=== PATIENT | male | born 1995 | race Caucasian/White ===

== ENCOUNTER 2020-03-13 18:01 | Emergency (ER) | payer SELFPAY ==
[2020-03-13 18:12] VITALS: BP 142/92; PULSE 82; RESP 16; TEMP 36.8; O2SAT 98; BMI 24.5
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
[2020-03-13 18:32] VITALS: BP 142/81; PULSE 84; RESP 16; O2SAT 98
--- NOTE | 2020-03-13 18:42 | PC.NURSE ---
Pt to CT
[2020-03-13] MEDS: iohexol 300 mg/mL 100 mL Btl IV (19:10)
[2020-03-13 19:18] VITALS: RESP 18
[2020-03-13] MEDS: ondansetron 2 mg/ML SDV 2 mL 4 MG IVP (19:18)
[2020-03-13] MEDS: HYDROmorphone 1 mg/mL INJ 1 mL 0.5 MG IVP ×2 (19:18→20:16)
[2020-03-13 19:26] LABS: Basophils % 0.1 %; Eosinophils % 0.3 %; Hematocrit 46.8 % (42.0-52.0); Hemoglobin 16.1 g/dL (11.7-16.6); Lymphocytes # 2.5 10^3/uL (0.8-4.8); Lymphocytes % 17.2 %; Mean Corpuscular HGB Conc 34.4 g/dL (30.0-36.0); Mean Corpuscular Hemoglobin 31.3 pg (28.0-34.0); Mean Corpuscular Volume 90.9 fL (80-94); Mean Platelet Volume 11.2 fL (7.4-10.4); Monocytes # 1.3 10^3/uL (0.2-0.9); Monocytes % 9.1 %; Neutrophils # 10.7 10^3/uL (1.8-7.7); Neutrophils % 72.8 %; Nucleated Red Blood Cells % 0 %; Platelet Count 244 10^3/cmm (130-400); Red Blood Count 5.15 10^6/uL (4.1-5.3); Red Cell Distribution Width 12.4 % (12.1-15.1); White Blood Count 14.7 10^3/uL (4.0-10.0)
[2020-03-13 19:35] LABS: Alanine Aminotransferase 30 U/L (0-41); Albumin Level 4.7 g/dL (3.5-5.2); Alkaline Phosphatase 133 IU/L (40-130); Anion Gap 17.9 (5-19); Aspartate Amino Transferase 40 U/L (0-40); Blood Urea Nitrogen 9 mg/dL (6-20); Calcium 9.7 mg/dL (8.5-10.5); Carbon Dioxide 26 mmol/L (22-29); Chloride 98 mmol/L (98-107); Globulin 2.9 g/dL (1.3-4.6); Glomerular Filtration Rate 103.7 mL/min (90-130); Glucose 111 mg/dL (65-115); Osmolality Calculated 283 mOsm/kg (285-295); Potassium 3.9 mmol/L (3.5-5.1); Sodium 138 mmol/L (136-145); Total Bilirubin 0.8 mg/dL (0.15-1.2); Total Protein 7.6 g/dL (6.6-8.7)
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
[2020-03-13] MEDS: lactated ringers 1,000 ML 999 ML IV (19:52)
[2020-03-13 20:16] VITALS: RESP 19; O2SAT 98
[2020-03-13 20:18] VITALS: BP 140/93; PULSE 18; RESP 20; O2SAT 98
--- NOTE | 2020-03-13 20:19 | ECG_ITS ---
Measurements Intervals [place] Rate: 58 P: 155 [place]: 142 QRS: 66 QRSD: 92 T: 77 QT: 375 QTc: 369 ECTOPIC ATRIAL BRADYCARDIA POSSIBLE LEFT ATRIAL ENLARGEMENT [-0.1mV P WAVE IN V1/V2] POSSIBLE RIGHT VENTRICULAR CONDUCTION DELAY [RSR (QR) IN V1/V2] NONSPECIFIC T-WAVE ABNORMALITY No previous ECG available for comparison Electronically Signed On 03-13-2020 21:52:47 CDT by Lynne Rosario M.D. [email or web address]
[2020-03-13 21:29] VITALS: BP 142/86; PULSE 72; RESP 16; O2SAT 98
--- NOTE | 2020-03-14 15:58 | DCPLANNER ---
hedge fund manager had message to schedule a follow up appointment for patient with Dr. Pan. hedge fund manager called [facility], spoke with Gabriella. hedge fund manager gave clinic patients information, was told that it would be printed and given to Jamin for review. Clinic will call family preservation caseworker and patient with appointment information.
--- NOTE | 2020-03-20 09:15 | DCPLANNER ---
Jamin from [facility] called assistant case manager stating that patient has an appointment scheduled for Thursday, March 21, 2020 at 1:00 with Leilani Osborne. Clinic will call patient with appointment information.
--- NOTE | 2020-04-18 13:04 | DCPLANNER ---
Patient did attend follow up appointment scheduled with Dr. Puga office.
== END 2020-03-13 21:30 | disposition home or self-care (01) ==
PROVIDERS: Emergency Provider Emergency Medicine
DX: S22.21XA Fracture of manubrium, initial encounter for closed fracture (principal); S22.32XA Fracture of one rib, left side, initial encounter for closed fracture; S22.000A Wedge compression fracture of unspecified thoracic vertebra, initial encounter for closed fracture; V57.5XXA Driver of pick-up truck or van injured in collision with fixed or stationary object in traffic accident, initial encounter; F17.210 Nicotine dependence, cigarettes, uncomplicated
CPT/HCPCS: 12345; 36415; 70450; 70486; 71260; 72125; 72128; 74177; 80053; 85025; 93005; 96365; 96375; 96376; 99283; 99284; J1170; J2405; Q9967

== ENCOUNTER 2020-04-03 11:08 | Outpatient (CLI) | payer SELFPAY ==
--- NOTE | 2020-04-03 11:19 | CT_ITS ---
WS: [id number] CT scan of the chest without IV contrast, additional two-dimensional coronal and sagittal reconstruct ion was performed. 04/03/2020 Clinical Data: Sternal pain Comparison: CT chest abdomen and pelvis, 03/13/2020. DLP: 664.[address] scans at [facility] use at least one of these dose optimization techniques: automat ed exposure control; mA and/or kV adjustment per patient size (includes targeted exams where dose is matched to clinical indication); or iterative reconstruction. Findings: No nodules, masses or effusions are seen. The heart size is normal with no pericardial effusion. The pulmonary arterial system and thoracic aorta demonstrate no abnormalities or dilatations. No pneumoni a or pneumothorax is present. The trachea bifurcates normally into the bronchi. There is no axillary or significant mediastinal adenopathy. The upper abdomen shows no abnormalities. The fractures of the T3, T4 and T5 vertebral bodies, superior aspect of the manubrium, left second ri b, and left T3 and T4 transverse processes have not changed. CT/CT chest wo con [id number]: [address] scan of the chest, acute cardiopulmonary disease. 2. No change in multiple fractures of the thoracic spine and manubrium.
--- NOTE | 2020-04-03 11:19 | CT_ITS ---
WS: [id number] CT scan of the thoracic spine. Additional two-dimensional coronal and sagittal reconstruction was per formed. 04/03/2020 Clinical Data: Thoracic fracture Comparison: CT thoracic spine, 03/13/2020. DLP: 1267.[address] scans at [facility] use at least one of these dose optimization techniques: automat ed exposure control; mA and/or kV adjustment per patient size (includes targeted exams where dose is matched to clinical indication); or iterative reconstruction. Findings: The compression fractures of the T3 and T4 vertebral bodies remain unchanged. There is loss of approx imately 25% of the anterior and central vertebral body heights. There is minimal retropulsion at the posterior inferior aspect of T4 of 0.2 cm. There is slight loss of vertebral body height approximatel y 10% of the anterior and central portion of T5. The left transverse processes of T3 and T4 show nond isplaced fractures which have not changed. There is a fracture at the costophrenic vertebral junction of the left second rib also unchanged. No canal stenosis is seen. The lower thoracic vertebral bodies appear to be normal. The paravertebral regions show no abnormalities. CT/CT thoracic spin wo con* [id number] Impression: 1. Fractures of T3, T4 and the superior aspect of T5 unchanged. 2. Transverse processes fractures of T3 and T4 on the left unchanged. 3. Fracture of the left second rib at the junction of the transverse process un changed.
== END 2020-04-03 11:09 | disposition home or self-care (01) ==
LOC: RADWPI 11:11
PROVIDERS: Visit Provider Licensed Practical Nurse
DX: S22.059A Unspecified fracture of T5-T6 vertebra, initial encounter for closed fracture (principal); S22.049A Unspecified fracture of fourth thoracic vertebra, initial encounter for closed fracture; S22.039A Unspecified fracture of third thoracic vertebra, initial encounter for closed fracture; X58.XXXA Exposure to other specified factors, initial encounter; S22.39XA Fracture of one rib, unspecified side, initial encounter for closed fracture; R07.2 Precordial pain
CPT/HCPCS: 71250; 72128

== ENCOUNTER 2020-05-07 10:36 | Outpatient (CLI) | payer SELFPAY ==
--- NOTE | 2020-05-07 10:30 | CT_ITS ---
WS: [id number] CT THORACIC SPINE TECHNIQUE: Noncontrast CT of the thoracic spine with coronal and sagittal reformatted images. CLINICAL INFORMATION: Fracture COMPARISON: April 03, 2020. DLP: 1029.[address] scans at [facility] use at least one of these dose optimization techniques: automat ed exposure control; mA and/or kV adjustment per patient size (includes targeted exams where dose is matched to clinical indication); or iterative reconstruction. FINDINGS: Mild thoracic kyphosis. Stable compression fractures involving the superior endplates at T3, T4, T5 u nchanged. Minimal retropulsion posterior inferior aspect of T4 is unchanged. No significant central c anal stenosis. Stable left T3 and T4 nondisplaced transverse process fractures. Stable left second ri b fracture at the costovertebral junction. CT/CT thoracic spin wo con* [id number] IMPRESSION: 1. Stable mild fractures superior endplates at T3, T4 and T5 unchanged. 2. No significant central canal stenosis. 3. Stable fractures of the left T3 and T4 transverse process fractures and lef t second rib.
--- NOTE | 2020-05-07 10:45 | CT_ITS ---
WS: [id number] CT CHEST TECHNIQUE: Noncontrast CT of the chest with coronal and sagittal reformatted images. CLINICAL INFORMATION: Sternal fracture COMPARISON: CT 04/03/2020 and 03/13/2020 DLP: 588.[address] scans at [facility] use at least one of these dose optimization techniques: automat ed exposure control; mA and/or kV adjustment per patient size (includes targeted exams where dose is matched to clinical indication); or iterative reconstruction. FINDINGS: Lungs are well aerated. No acute pulmonary infiltrates. No focal pneumonia. No mediastinal or hilar l ymphadenopathy. Normal thyroid gland. Comminuted sternal manubrium fracture evidence of interval heal ing compared to previous. Interval callus formation. No new fractures. Mild compression fractures involving upper thoracic spine superior endplates at T3, T4, T5 vertebral bodies unchanged. Stable left second rib and left T3 and T4 transverse process fractures CT/CT chest wo con [id number] IMPRESSION: 1. Lungs are well aerated. No acute pulmonary infiltrates. 2. No mediastinal or hilar lymphadenopathy. 3. Healing comminuted fracture involving the sternum. Evidence of interval hea ling compared to the prior examination. No new fractures. 4. Stable mild compression fractures superior endplates at T3, T4, T5
== END 2020-05-07 10:37 | disposition home or self-care (01) ==
LOC: RADWPI 10:39
PROVIDERS: Visit Provider Licensed Practical Nurse
DX: S22.20XA Unspecified fracture of sternum, initial encounter for closed fracture (principal); S22.039A Unspecified fracture of third thoracic vertebra, initial encounter for closed fracture; S22.049A Unspecified fracture of fourth thoracic vertebra, initial encounter for closed fracture; S22.059A Unspecified fracture of T5-T6 vertebra, initial encounter for closed fracture; S22.32XA Fracture of one rib, left side, initial encounter for closed fracture; X58.XXXA Exposure to other specified factors, initial encounter
CPT/HCPCS: 71250; 72128

== ENCOUNTER 2021-05-29 03:04 | Emergency (ER) | payer SELFPAY ==
[2021-05-29 03:12] VITALS: BP 129/74; PULSE 97; RESP 18; TEMP 36.4; O2SAT 99; BMI 20.7
--- NOTE | 2021-05-29 04:58 | XRR_ITS ---
PROCEDURE INFORMATION: Exam: XR Right Foot Exam date and time: 05/29/2021 4:58 AM Age: 25 years old Clinical indication: Swelling, leg or foot; Patient HX: R foot medial aspect (marked) swelling and drainage; Additional info: Evaluate for infection TECHNIQUE: Imaging protocol: XR Right foot. Views: 1 or 2 views. COMPARISON: No relevant prior studies available. FINDINGS: Bones/joints: No fractures or dislocations identified. No significant bony abnormality identified. Soft tissues: No subcutaneous gas or radiopaque foreign body identified. XR/XR foot RT 2V [id number] IMPRESSION: 1. No subcutaneous gas or radiopaque foreign body identified.
--- NOTE | 2021-05-29 05:03 | ED_ITS ---
HPI - General Adult General: Chief complaint: Skin/Abscess/Foreign Body Stated complaint: Rt Foot Swollen\Hole with pus Time Seen by Provider: 05/29/21 04:25 History of Present Illness: HPI narrative: Patient is a 25-year-old male without any significant past medical history presents emergency room with complaints of right foot abscess/erythema x2 days. Patient was wearing a sneaker and riding bike he noticed an abscess was growing at the first MCP. Patient not sure whether there is any puncture wound involved. Patient noticed that over the last 2 days, has noticed increased abscess formation at the first MCP. Patient with a lesion himself with a knife and attempted to take amoxicillin at home. Patient tells me that he only on appointment without be able to fill his antibiotics. He denies any fever/chills, history of IV drug use, diabetes, or any immunocompromise. Onset:2 days sosa Duration:2 days Location:home Severity:moderate Review of Systems Narrative: Constitutional: No fever, no chills. HEENT: No vision changes CV: No chest pain, no palpitations PULM: no cough, no dyspnea. GI: No abdominal pain, no N/V/D. : No dysuria MSKEL: No muscle pain SKIN: +R foot abscess/cellulitis HEME: No visible bruises PSYCH: Normal mood PFSH ED PFSH: Medical History (Updated 05/29/21 @ 05:02 by Kody Castañeda MD) Fracture closed, sternum Fracture of thoracic vertebra Surgical History No history of previous surgery Family History Grandmother Diabetes Stroke Grandfather Diabetes CAD (coronary artery disease) Mother Cancer Social History Smoking and tobacco status: current every day smoker Alcohol intake: current Alcohol intake frequency: holidays/special occasions only Household members: none Marital status: Single Current occupational status: employed Current occupation: [employer], on Medical Leave History of recent travel: No Physical Exam Narrative: EXAM NARRATIVE: Head: Atraumatic Eyes: PERRL, conjunctiva without injection ENT: Mucous membrane moist NECK: Supple, ROM intact LUNGS: LCTAB, no crackles/rhonchi CV: RRR ABDOMEN: Soft, nontender in all quadrants EXTREMITY: Normal ROM SKIN: + R dorsal MCP edema/erythema/fluctuance with lateral aspect ulceration, no crepitus, 2+dp/pt pulses, cap refill < 3 seconds, tenderness to range of motion of the MTP or toe joints. NEURO: Awake and alert, no focal motor deficits PSYCH: Normal mood and affect Course Vital Signs: Vital signs: Vital Signs Temperature 97.6 F 05/29/21 03:12 Pulse Rate 70 05/29/21 05:47 Respiratory Rate 16 05/29/21 05:47 Blood Pressure 115/78 05/29/21 05:47 Pulse Oximetry 100 05/29/21 05:47 MDM - General Adult MDM Narrative: Medical decision making narrative: 25-year-old male presents the emergency room with complaints of right foot cellulitis/abscess. On exam, patient has finding consistent with an abscess in the setting of cellulitis. Significant findings of cellulitis concern for puncture wound, I have offered patient admission for IV antibiotics and serial evaluation. However patient declined citing desire to go home and the need to look for job as patient is unemployed. Given patient first dose of vancomycin Zosyn today. Patient tells me that he would like obtain outpatient prescription for management of his infection. I recommended inpatient admission given concerns for deep soft tissue infection over the foot. However, patient declined admission. I discussed with patient that the risk of leaving AGAINST MEDICAL ADVICE which includes possible pseudomonal infection leading to possible worsening foot infection and possible need for amputation or even . Patient verbalized understanding of all these risk today. Alternatives including outpatient follow-up with p.o. antibiotics discussed with patient who agrees with plan to do so. I have given patient prescription for clindamycin and Bactrim today. Patient is given strict return precaution for any worsening symptoms including worsening swelling, foot pain, inability to ambulate, inability to range toes, or any new concerning complaints. Disposition: AMA Discharge Plan Discharge Patient Disposition: Admitted As Inpatient Clinical Impression: Abscess of foot, Cellulitis of foot Condition: Stable Coding Level of Care Code ED Well Logging Mud Analysis Captain for Amadeo Sanches
[2021-05-29] MEDS: piperacillin-tazobactam 4.5 GM in sodium chloride 0.9% (plus) 50 ML IV (05:15)
[2021-05-29] MEDS: vancomycin 1,000 MG in sodium chloride 0.9% 250 ML 250 MG IV (05:15)
[2021-05-29] MEDS: acetaminophen 500 mg Tablet 1000 MG PO (05:15)
[2021-05-29 05:47] VITALS: BP 115/78; PULSE 70; RESP 16; O2SAT 100
[2021-05-29 06:54] VITALS: BP 115/77; PULSE 69; RESP 16; O2SAT 100
== END 2021-05-29 06:56 | disposition admitted as inpatient to this hospital (09) ==
PROVIDERS: Emergency Provider Emergency Medicine
DX: L02.611 Cutaneous abscess of right foot (principal); L03.115 Cellulitis of right lower limb; F17.200 Nicotine dependence, unspecified, uncomplicated; Z53.29 Procedure and treatment not carried out because of patient's decision for other reasons
CPT/HCPCS: 73620; 96365; 96367; 99284; J2543; J3370; J7050